=== PATIENT | male | born 2005 | race Two or more races ===

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

== ENCOUNTER 2025-02-04 13:36 | Emergency (ER) | payer OTHER ==
[~2025-02-04] VITALS: Ht 180.3 cm; Wt 63.6 kg
[2025-02-04] MEDS ORDERED: IBUPROFEN 400 MG TABLET ONE (14:24)
[2025-02-04] MEDS ORDERED: CYCLOBENZAPRINE 10 MG TABLET ONE (14:24)
[2025-02-04] MEDS: CYCLOBENZAPRINE 10 MG TABLET PO ONE (14:26)
[2025-02-04] MEDS: IBUPROFEN 600 MG TABLET PO ONE (14:26)
[2025-02-04] MEDS ORDERED: CYCL5TAB PO (16:32)
[2025-02-04 16:47] VITALS: BP 128/77; TEMP 97.8; O2SAT 100
== END 2025-02-04 16:50 | disposition home or self-care (01) ==
LOC: ER 13:36
DX: M79.641 Pain in right hand (principal); M25.572 Pain in left ankle and joints of left foot; Z98.890 Other specified postprocedural states; V43.52XA Car driver injured in collision with other type car in traffic accident, initial encounter; Y93.89 Activity, other specified; Y92.415 Exit ramp or entrance ramp of street or highway as the place of occurrence of the external cause; Y99.8 Other external cause status
CPT/HCPCS: 71045-TC; 73130-TC; 73610-TC